=== PATIENT | female | born 1965 | race Caucasian/White ===

== ENCOUNTER 2018-09-22 06:02 | Day surgery (SDC) | payer OTHER ==
[~2018-09-22] VITALS: Ht 165.1 cm; Wt 77.7 kg
[2018-09-22] MEDS ORDERED: SERT25TA83 PO (07:05)
[2018-09-22 07:06] VITALS: Ht 165.1 cm; Wt 77.7 kg
[2018-09-22 07:42] VITALS: BP 128/61; PULSE 60; RESP 10
[2018-09-22] MEDS ORDERED: FENTAnyl 50 MCG/ML VIAL ONE (08:27)
[2018-09-22] MEDS ORDERED: MIDAZOLAM 1 MG/ML 2 ML INJ ONE ×3 (08:27)
[2018-09-22 08:51] VITALS: BP 115/70; PULSE 62; RESP 12
== END 2018-09-22 10:26 | disposition home or self-care (01) ==
LOC: GIL 06:02
PROVIDERS: ATTEND Internal Medicine Gastroenterology
DX: Z12.11 Encounter for screening for malignant neoplasm of colon (principal); K64.8 Other hemorrhoids
CPT/HCPCS: 45378; 84703; J2250; J3010